=== PATIENT | male | born 1960 | race Caucasian/White ===

== ENCOUNTER → 2016-12-27 | Day surgery (SDC) | payer OTHER ==
[2016-12-01 14:37] VITALS: Ht 165.1 cm; Wt 95.5 kg
[~2016-12-27] VITALS: Ht 165.1 cm; Wt 95.5 kg
[~2016-12-27] MED LIST: 500ML BSS 0.3ML EPI 1:1000PF IRRIG ONE; ACETAMINOPHEN 325 MG TAB PO PRN; ALLO100T PO; AMT50 PO; AMVISC PLUS 0.8ML SYRINGE INT OCU ONE; ASPI81TA28 PO; ATROPINE SULFATE 0.1 MG/ML 5ML SYR IV PRN; BSS FLUSH ONE; EpHEDrine SULFATE INJ 50 MG/ML AMP IV PRN; EpINEphrine INJ 1MG/ML AMP 1 MG/ML AMP ONE; LACTATED RINGER'S 1000ML 500 ML IV SCH; LIDOCAINE 3.5% OPH GEL PER APPLICATION CHARGE ONE; LIDOCAINE HCL 1% MPF 2 ML VIAL ONE; MIDAZOLAM HCL 1 MG/ML 2ML VIAL ONE; NYSTCRE11 TOP; OCUCOAT 1 ML SOLN IO ONE; PHENYLEPHRINE HCL 10% OP SOLN PER DROP CHARGE OPL SCH; POVIDONE-IODINE OP SOLN 30 ML BTL ONE; PROPARACAINE 0.5% OP SOLN PER DROP CHARGE OPL SCH; SUMA100T16 PO; TOBRAMYCIN/DEXAMETHASONE OPH OINT PER APPLN CHARGE ONE; TOPI25TA99 PO
--- NOTE | 2016-12-27 08:49 | History & Physical Bridge - [place] ---
H&P Re-Evaluation Bridge Note: I have examined the patient, reviewed the History & Physical and in the interval since the performance of the History & Physical I have noted the following changes of clinical significance: Diagnosis: Left Cataract Procedure: Left Cataract Removal with Lens Implant No changes noted
[2016-12-27] MEDS: PHENYLEPHRINE HCL 2.5% OP SOLN PER DROP CHARGE OPL SCH ×2 (08:54→09:05)
[2016-12-27] MEDS: TROPICAMIDE 1% OP SOLN PER DROP CHARGE OPL SCH ×2 (08:55→09:06)
[2016-12-27] MEDS: CYCLOPENTOLATE HCL 1% OP SOLN PER DROP CHARGE OPL SCH ×2 (08:56→09:09)
[2016-12-27] MEDS: KETOROLAC 0.5% OP SOLN PER DROP CHARGE OPL SCH ×2 (08:57→09:10)
[2016-12-27] MEDS: GATIFLOXACIN OP SOLN PER DROP CHARGE OPL SCH ×2 (08:58→09:11)
--- NOTE | 2016-12-27 09:31 | Discharge Instructions-SurgCtr ---
Discharge Instructions Date of Service Dec 27, 2016. Visit Reason for Visit: Cataract Left Eye Discharge Discharge Diagnosis / Problem: cataract Discharge Goals Goal(s): Improve function Activity Recommendations Activity Limitations: per Instructions/Follow-up section Anesthesia . Post Anesthesia Instructions: If you have had General Anesthesia or IV Sedation: * Do not drive today. * Resume driving when surgeon permits. * Do not make important decisions or sign legal documents today. * Call surgeon for: 1. Temperature elevations greater than 101 degrees F. 2. Uncontrollable pain. 3. Excessive bleeding. 4. Persistent nausea and vomiting. 5. Medication intolerance (nausea, vomiting or rash). * For nausea and vomiting use only clear liquids such as: tea, soda, bouillon until nausea subsides, then gradually increase diet as tolerated. * If you have any concerns or questions, call your surgeon's office. If physician is unavailable and it is an emergency, call 911 or go to the nearest emergency room. . Instructions / Follow-Up Instructions / Follow-Up ACTIVITY RECOMMENDATIONS: * No strenuous lifting, jogging or running for 4 days * No swimming or yard work for 1 week. * Limited bending is permitted, such as putting on shoes. RETURN TO SCHOOL/WORK: No work until seen by physician in office. MEDICATIONS: Resume previous medications unless instructed otherwise by your surgeon. This includes eye drops for glaucoma. Zymaxid/Gatifloxacin (cerda cap) - one drop every 2 hours until bedtime Nevanac/Ilevro/Prolensa/Ketorolac (mosher cap) - one drop every 4 hours until bedtime Prednisolone/Durezol (white/pink cap, SHAKE WELL) - one drop every 2 hours until bedtime Starting tomorrow - all 3 drops every 4 hours until seen in the office Optive drops - as needed for discomfort SPECIAL CARE INSTRUCTIONS: * Wear eyeshield when sleeping, for four nights. * You may wear your own glasses or sunglasses while awake. * You may read or watch TV * You may shower and wash your face, but be gentle around the eye and pat dry. * Blurry vision and mild irritation are normal. * Call office if pain is more severe or vision becomes dark at . FOLLOW UP VISIT: Follow-up with Dr Mckeon tomorrow. Diet Recommendations Home Diet: resume previous diet Procedures Procedures Performed: Left Cataract Phacoemulsification With Intraocular Lens Implant Pending Studies Studies pending at discharge: no Medical Emergencies . Who to Call and When: Medical Emergencies: If at any time you feel your situation is an emergency, please call 911 immediately. . Non-Emergent Contact Non-Emergency issues call your: Land Surveyor Manager . . "Provider Documentation" section prepared by Yosef Mkceon. .
[2016-12-27 09:32] VITALS: TEMP 36.9
--- NOTE | 2016-12-27 09:32 | [facility] Operative Report ---
Operative Report Date of Service Dec 27, 2016. Operative Report 1. PREOPERATIVE DIAGNOSIS: Cataract of the left eye. 2. POSTOPERATIVE DIAGNOSIS: Same. 3. PROCEDURE: Phacoemulsification with intraocular lens implantation of the left eye. SURGEON: Dr. Yosef Mckeon. ANESTHESIA: Topical Lidocaine gel, 1% Non- Preserved intracameral Lidocaine, and monitored intravenous sedation. INDICATIONS FOR THE PROCEDURE: The patient is a 56 - year-old male with a history of cataract of the left eye causing significant visual impairment. The details of the proposed procedure were explained to the patient who asked appropriate questions and following discussion of all risks, benefits and alternatives agreed to have the procedure done. 4. OPERATION AND FINDINGS: DESCRIPTION OF PROCEDURE: After informed consent was obtained, the patient was brought to the Operating Room at the [facility]. The patient was placed in a supine position and then the left eye was prepped and draped in the usual sterile fashion for intraocular surgery. A drop of topical Lidocaine gel was placed in the operative eye. A wire lid speculum was then placed in the fornices. A corneal paracentesis was then created temporally. The Non-Preserved Lidocaine was then instilled into the anterior chamber. The anterior chamber was then pressurized with viscoelastic. A 2.0 mm clear corneal incision was then created temporally. A cystotome was inserted into the anterior chamber and used to create a tear in the anterior lens capsule. This capsular tear was then used to create a small flap and the flap was dragged in a counterclockwise direction in order to create a continuous curvilinear capsulorrhexis. Hydrodissection was accomplished with balanced salt solution. Phacoemulsification of the lens nucleus was then performed in a standard [id number] technique. The phaco time was 21 seconds with an average power of 10 %. The remaining cortical material was removed using irrigation aspiration. The capsular bag was then filled with viscoelastic. A Bausch & Lomb MI60L +17.0 diopters lens was then loaded into the injector and injected into the capsular bag. The remaining viscoelastic was removed with the irrigation aspiration handpiece. The wound was hydrated and then checked and found to be watertight. The intraocular pressure was checked and found to be adequate. The wire lid speculum was removed and the patient's face was cleaned and dried. TobraDex ointment was placed in the inferior fornix. The patient was discharged to the Recovery Room having tolerated the procedure well. There were no complications. The patient will be seen tomorrow in the office for follow-up. I attest to the content of the Intraoperative Record and any orders documented therein. Any exceptions are noted below.
[2016-12-27 09:59] VITALS: BP 110/78; PULSE 84; O2SAT 97
--- NOTE | 2016-12-27 10:05 | Anesthesiology Progress Note ---
Anesthesia Post Op Note Date & Time Dec 27, 2016 at 10:05 Vital Signs Pain Intensity: 0 Vital Signs Past 12 Hours Date Time Temp Pulse Resp B/P (MAP) Pulse Ox O2 Delivery O2 Flow Rate FiO2 12/27/16 09:59 84 16 110/78 (89) 97 Room Air 12/27/16 09:32 36.9 95 16 103/69 (80) 95 Room Air 12/27/16 08:31 36.8 103 18 109/76 (87) 97 Room Air Notes Mental Status: alert / awake / arousable, participated in evaluation Pt Amnestic to Procedure: No Nausea / Vomiting: adequately controlled Pain: adequately controlled Airway Patency, RR, SpO2: stable & adequate BP & HR: stable & adequate Hydration State: stable & adequate Anesthetic Complications: no major complications apparent amnesia level as expected for MAC
== END | disposition home or self-care (01) ==
LOC: X.SURG 07:44
PROVIDERS: ATTEND Ophthalmology
DX: H26.9 Unspecified cataract (principal); E78.2 Mixed hyperlipidemia; M10.9 Gout, unspecified; R73.03 Prediabetes; E78.5 Hyperlipidemia, unspecified; Z79.82 Long term (current) use of aspirin; Z80.42 Family history of malignant neoplasm of prostate; Z82.49 Family history of ischemic heart disease and other diseases of the circulatory system; Z79.899 Other long term (current) drug therapy; Z83.3 Family history of diabetes mellitus

== ENCOUNTER → 2017-01-17 | Day surgery (SDC) | payer OTHER ==
[2017-01-05 15:30] VITALS: Ht 165.1 cm; Wt 95.5 kg
[~2017-01-17] VITALS: Ht 165.1 cm; Wt 95.5 kg
[~2017-01-17] MED LIST changes: +FENTANYL CITRATE INJ 50 MCG/1 ML 2 ML VIAL ONE; -PHENYLEPHRINE HCL 10% OP SOLN PER DROP CHARGE OPL SCH; +PHENYLEPHRINE HCL 10% OP SOLN PER DROP CHARGE OPR SCH; -PROPARACAINE 0.5% OP SOLN PER DROP CHARGE OPL SCH; +PROPARACAINE 0.5% OP SOLN PER DROP CHARGE OPR SCH
[2017-01-17] MEDS: PHENYLEPHRINE HCL 2.5% OP SOLN PER DROP CHARGE OPR SCH ×2 (07:20→07:25)
[2017-01-17] MEDS: TROPICAMIDE 1% OP SOLN PER DROP CHARGE OPR SCH ×2 (07:21→07:26)
[2017-01-17] MEDS: CYCLOPENTOLATE HCL 1% OP SOLN PER DROP CHARGE OPR SCH ×2 (07:22→07:27)
[2017-01-17] MEDS: KETOROLAC 0.5% OP SOLN PER DROP CHARGE OPR SCH ×2 (07:23→07:29)
[2017-01-17] MEDS: GATIFLOXACIN OP SOLN PER DROP CHARGE OPR SCH ×2 (07:24→07:34)
--- NOTE | 2017-01-17 07:26 | History & Physical Bridge - [place] ---
H&P Re-Evaluation Bridge Note: I have examined the patient, reviewed the History & Physical and in the interval since the performance of the History & Physical I have noted the following changes of clinical significance: Diagnosis: Right Cataract Procedure: Right Cataract Removal with Lens Implant No changes noted
--- NOTE | 2017-01-17 08:08 | Discharge Instructions-SurgCtr ---
Discharge Instructions Date of Service Jan 17, 2017. Visit Reason for Visit: Right Cataract Discharge Discharge Diagnosis / Problem: cataract Discharge Goals Goal(s): Improve function Activity Recommendations Activity Limitations: per Instructions/Follow-up section Anesthesia . Post Anesthesia Instructions: If you have had General Anesthesia or IV Sedation: * Do not drive today. * Resume driving when surgeon permits. * Do not make important decisions or sign legal documents today. * Call surgeon for: 1. Temperature elevations greater than 101 degrees F. 2. Uncontrollable pain. 3. Excessive bleeding. 4. Persistent nausea and vomiting. 5. Medication intolerance (nausea, vomiting or rash). * For nausea and vomiting use only clear liquids such as: tea, soda, bouillon until nausea subsides, then gradually increase diet as tolerated. * If you have any concerns or questions, call your surgeon's office. If physician is unavailable and it is an emergency, call 911 or go to the nearest emergency room. . Instructions / Follow-Up Instructions / Follow-Up ACTIVITY RECOMMENDATIONS: * No strenuous lifting, jogging or running for 4 days * No swimming or yard work for 1 week. * Limited bending is permitted, such as putting on shoes. RETURN TO SCHOOL/WORK: No work until seen by physician in office. MEDICATIONS: Resume previous medications unless instructed otherwise by your surgeon. This includes eye drops for glaucoma. Zymaxid/Gatifloxacin (cerda cap) - one drop every 2 hours until bedtime Nevanac/Ilevro/Prolensa/Ketorolac (mosher cap) - one drop every 4 hours until bedtime Prednisolone/Durezol (white/pink cap, SHAKE WELL) - one drop every 2 hours until bedtime Starting tomorrow - all 3 drops every 4 hours until seen in the office Optive drops - as needed for discomfort SPECIAL CARE INSTRUCTIONS: * Wear eyeshield when sleeping, for four nights. * You may wear your own glasses or sunglasses while awake. * You may read or watch TV * You may shower and wash your face, but be gentle around the eye and pat dry. * Blurry vision and mild irritation are normal. * Call office if pain is more severe or vision becomes dark at . FOLLOW UP VISIT: Follow-up with Dr Mckeon tomorrow. Diet Recommendations Home Diet: resume previous diet Procedures Procedures Performed: Right Cataract Phacoemulsification With Intraocular Lens Implant Pending Studies Studies pending at discharge: no Medical Emergencies . Who to Call and When: Medical Emergencies: If at any time you feel your situation is an emergency, please call 911 immediately. . Non-Emergent Contact Non-Emergency issues call your: Physicians And Surgeons . . "Provider Documentation" section prepared by Yosef Mckeon. .
--- NOTE | 2017-01-17 08:09 | [facility] Operative Report ---
Operative Report Date of Service Jan 17, 2017. Operative Report 1. PREOPERATIVE DIAGNOSIS: Cataract of the right eye. 2. POSTOPERATIVE DIAGNOSIS: Same. 3. PROCEDURE: Phacoemulsification with intraocular lens implantation of the right eye. SURGEON: Dr. Yosef Mckeon. ANESTHESIA: Topical Lidocaine gel, 1% Non- Preserved intracameral Lidocaine, and monitored intravenous sedation. INDICATIONS FOR THE PROCEDURE: The patient is a 56 - year-old male with a history of cataract of the right eye causing significant visual impairment. The details of the proposed procedure were explained to the patient who asked appropriate questions and following discussion of all risks, benefits and alternatives agreed to have the procedure done. 4. OPERATION AND FINDINGS: DESCRIPTION OF PROCEDURE: After informed consent was obtained, the patient was brought to the Operating Room at the [facility]. The patient was placed in a supine position and then the right eye was prepped and draped in the usual sterile fashion for intraocular surgery. A drop of topical Lidocaine gel was placed in the operative eye. A wire lid speculum was then placed in the fornices. A corneal paracentesis was then created temporally. The Non-Preserved Lidocaine was then instilled into the anterior chamber. The anterior chamber was then pressurized with viscoelastic. A 2.0 mm clear corneal incision was then created temporally. A cystotome was inserted into the anterior chamber and used to create a tear in the anterior lens capsule. This capsular tear was then used to create a small flap and the flap was dragged in a counterclockwise direction in order to create a continuous curvilinear capsulorrhexis. Hydrodissection was accomplished with balanced salt solution. Phacoemulsification of the lens nucleus was then performed in a standard [id number]-[id number] technique. The phaco time was 15 seconds with an average power of 8 %. The remaining cortical material was removed using irrigation aspiration. The capsular bag was then filled with viscoelastic. A Bausch & Lomb MI60L +17.0 diopters lens was then loaded into the injector and injected into the capsular bag. The remaining viscoelastic was removed with the irrigation aspiration handpiece. The wound was hydrated and then checked and found to be watertight. The intraocular pressure was checked and found to be adequate. The wire lid speculum was removed and the patient's face was cleaned and dried. TobraDex ointment was placed in the inferior fornix. The patient was discharged to the Recovery Room having tolerated the procedure well. There were no complications. The patient will be seen tomorrow in the office for follow-up. I attest to the content of the Intraoperative Record and any orders documented therein. Any exceptions are noted below.
[2017-01-17 08:10] VITALS: TEMP 36.6
--- NOTE | 2017-01-17 08:15 | Anesthesia Progress Nt - [facility] ---
Anesthesia Post Op Note Date & Time Jan 17, 2017 at 08:15 Vital Signs Pain Intensity: 0 Vital Signs Past 12 Hours Date Time Temp Pulse Resp B/P (MAP) Pulse Ox O2 Delivery O2 Flow Rate FiO2 01/17/17 07:13 36.7 105 16 120/78 (92) 98 Room Air Notes Mental Status: alert / awake / arousable, participated in evaluation Pt Amnestic to Procedure: Yes Nausea / Vomiting: adequately controlled Pain: adequately controlled Airway Patency, RR, SpO2: stable & adequate BP & HR: stable & adequate Hydration State: stable & adequate Anesthetic Complications: no major complications apparent
[2017-01-17 08:24] VITALS: BP 121/81; PULSE 94; O2SAT 96
== END | disposition home or self-care (01) ==
LOC: X.SURG 06:18
PROVIDERS: ATTEND Ophthalmology
DX: H26.9 Unspecified cataract (principal); E78.2 Mixed hyperlipidemia; R73.03 Prediabetes; G43.109 Migraine with aura, not intractable, without status migrainosus; M10.9 Gout, unspecified; E66.9 Obesity, unspecified; Z79.82 Long term (current) use of aspirin; Z79.899 Other long term (current) drug therapy

== ENCOUNTER 2025-01-25 08:56 | Inpatient (IN) ==
--- NOTE | 2025-01-25 09:33 | Emergency Department Note ---
Impression & Plan Abdominal pain, Urinary tract infection, Hypokalemia, Depression ED Provider Note NAME: MARTINA PRETTY AGE: 64 SEX: M : 1960 ARRIVES VIA: Walk-In INFORMANT: Patient, ED PROVIDER(S): Dequan Egan DO CHIEF COMPLAINT: Multiple complaints HPI: The patient is a 64-year-old male who presented to the emergency department for an evaluation of multiple complaints. The patient states that he has had lower abdominal pain recently. He is being treated for a urinary tract infection. He also has back pain and chest pain. He is noted some shortness of breath but he states he has significant anxiety and depression. He is adenoma to talk to recently. The patient states he had a history of a fall where he injured his back. He does have a back brace that he wears currently. He denies having any leg swelling or leg pain. He has had some generalized weakness. He has been having difficulty at home because of all the symptoms. He is denying any suicidal ideation at this time. ROS: See above HPI for pertinent positives & negatives. A total of 10 systems reviewed and were otherwise negative. PAST MEDICAL HISTORY: See Below PAST SURGICAL HISTORY: See Below FAMILY HISTORY: See Below SOCIAL HISTORY: See Below HOME MEDICATIONS: See Below ALLERGIES: See Below VITALS: See Below PHYSICAL EXAMINATION: GENERAL: The patient is awake and alert. The patient appears somewhat anxious. EYES: The conjunctivae are clear. The pupils are round and reactive. EARS, NOSE, MOUTH AND THROAT: The nose is without any evidence of any deformity. NECK: The neck is nontender and supple. RESPIRATORY: Normal respiratory effort is noted there is no evidence of wheezing rhonchi or rales CARDIOVASCULAR: Regular rate and rhythm noted there no murmurs rubs or gallops normal S1 normal S2. GASTROINTESTINAL: The abdomen was mildly distended. There is suprapubic tenderness to palpation but no guarding or rigidity. BACK: There was diffuse tenderness across the lumbar spine. Range of motion appears intact. MUSCULOSKELETAL/EXTREMITIES: There is no evidence of gross deformity full range of motion is noted in the hips and shoulders. SKIN: There is no obvious evidence of any rash. There are no petechiae, pallor or cyanosis noted. NEUROLOGIC: Patient is awake alert and oriented x3 strength is symmetric patellar reflexes are 2+ bilaterally PSYCH: The patient's affect is very flat. The patient appears anxious and guarded. The patient is currently denying any suicidal ideation. MEDICAL DECISION MAKING: The patient is a 64-year-old male who presented to the emergency department for an evaluation of multiple complaints. The patient was experiencing abdominal pain. He is being treated for urinary tract infection. Patient also has a history of back pain. I discussed the patient's laboratory and radiographic studies with him. He was treated with IV fluids as well as potassium replacement. He was asked to give a urine sample multiple times but because of his CT findings he was started on an antibiotic for presumptive urinary tract infection. Given the patient's ongoing symptoms I [facility] They have agreed to evaluate the patient in the emergency department for further management and disposition. Triage Nursing notes reviewed. Prior medical records reviewed Vital Signs: reviewed and remarkable for no significant abnormalities Differential diagnosis: Etiologies such as appendicitis, diverticulitis, obstruction, inflammatory bowel disease, renal colic, PUD, biliary pathology, pancreatitis, mesenteric ischemia, aortic pathology, infections, genitourinary, UTI, perforated viscus, as well as others were entertained. ER treatment provided: See below Diagnostics interpreted by me: ECG: EKG was obtained in the emergency department. My interpretation is sinus tachycardia at 103 bpm. There was no ectopy. There was no acute ST segment abnormalities noted. No previous tracing was available. Cardiac Monitoring: An order was placed for continuous cardiac monitoring. The monitor shows a rate of 97 bpm with sinus rhythm. Laboratory studies: As stated above and show below. Imaging studies: See below. Radiographic imaging was reviewed by myself Consultation(s): I discussed this case with Dr. Miller who is [facility]. Past Med/Surg History Problem List (Updated 01/25/25 @ 13:26 by Dequan Egan DO) Depression (Acute) Hypokalemia (Acute) Urinary tract infection (Acute) Abdominal pain (Acute) Hypertension (Chronic) Dyslipidemia (Chronic) Obesity (Chronic) Vitamin D deficiency (Chronic) Diabetes type 2, uncontrolled (Chronic) Graves' eye disease (Chronic) Graves disease (Chronic) Medical History Double vision Goiter Hyperthyroidism Surgical History Hx of cataract extraction Family History Mother Hypothyroidism (acquired) Migraine Father Cancer YASMANI (obstructive sleep apnea) Social History Smoking Status: Never smoker Hx Alcohol Use: No Preferred Language: Pashto marital status: Single Feels Safe at Home: Yes Allergies Allergies Allergy/AdvReac Type Severity Reaction Status Date / Time No Known Allergies Allergy Unverified 01/25/25 13:00 Home Meds Home Medications Medication Instructions Recorded Confirmed allopurinol 100 mg tablet 100 mg PO BID 04/16/19 01/25/25 aspirin 81 mg tablet,delayed 81 mg PO DAILY 04/16/19 01/25/25 release sumatriptan succinate 100 mg 100 mg PO DIRECTED PRN Migraine 04/16/19 01/25/25 tablet (Imitrex) Headache melatonin 5 mg tablet 5 mg PO HS PRN Sleep 01/25/25 01/25/25 metformin 500 mg tablet 500 mg PO BID 01/25/25 01/25/25 nitrofurantoin 100 mg PO BID 01/25/25 01/25/25 monohydrate/macrocrystals 100 mg capsule nortriptyline 25 mg capsule 25 mg PO DAILY 01/25/25 01/25/25 rosuvastatin 10 mg tablet 10 mg PO DAILY 01/25/25 01/25/25 tamsulosin 0.4 mg capsule 0.4 mg PO DAILY 01/25/25 01/25/25 topiramate 50 mg tablet 50 mg PO BID 01/25/25 01/25/25 trazodone 100 mg tablet 100 mg PO HS 01/25/25 01/25/25 Results & Data (ED) Vital Signs Vital Signs - 24 hr 01/25/25 09:04 01/25/25 09:26 01/25/25 09:33 Temperature 36.8 C Temperature Source Temporal Artery Scan Pulse Rate 111 H 115 H Pulse Rate from SpO2 Sensor Respiratory Rate 20 Respiratory Effort / Characteristics Non-Labored Spontaneous Respiratory Depth Normal Blood Pressure 116/72 Blood Pressure Mean 86 Pulse Oximetry 98 Oxygen Delivery Method Room Air Room Air Sepsis Recent Fever Within 48 Hours No Sepsis New/Unexplained Change in Mental Status No Sepsis Action Taken by Nursing No Action Required 01/25/25 09:37 01/25/25 10:00 01/25/25 11:00 Temperature Temperature Source Pulse Rate 101 H 102 H Pulse Rate from SpO2 Sensor 102 H 102 H Respiratory Rate 15 18 Respiratory Effort / Characteristics Respiratory Depth Blood Pressure 132/75 116/69 128/106 H Blood Pressure Mean 109 90 112 Pulse Oximetry 98 Oxygen Delivery Method Sepsis Recent Fever Within 48 Hours Sepsis New/Unexplained Change in Mental Status Sepsis Action Taken by [facility]sp Medications Current Medication List: was personally reviewed by me Laboratory Data Attestation: I reviewed the patient's lab results. 01/25/25 09:26 01/25/25 09:26 Lab Results 01/25/25 01/25/25 Range/Units 09: 10:00 WBC 11.32 H (4.8-10.8) K/ul RBC 4.23 L (4.70-6.10) M/uL Hgb 13.6 L (14.0-18.0) g/dl Hct 37.2 L (42.0-52.0) % MCV 87.9 (80.0-100.0) fL MCH 32.2 (25.0-34.0) pg MCHC 36.6 H (32.0-36.0) g/dL RDW Std Deviation 47.8 H (36.4-46.3) fL RDW Coeff of Scott 15.1 H (11.5-14.5) % Plt Count 295 (130-400) K/uL MPV 11.2 (9.4-12.4) fL Immature Gran % (Auto) 0.3 % Neut % (Auto) 62.7 % Lymph % (Auto) 29.7 % [place] % (Auto) 5.9 % Eos % (Auto) 0.9 % Baso % (Auto) 0.5 % Neut # (Auto) 7.10 H (1.40-6.50) K/uL Lymph # (Auto) 3.36 (1.20-3.40) K/uL [place] # (Auto) 0.67 H (0.11-0.59) K/uL Eos # (Auto) 0.10 (0.00-0.50) K/uL Baso # (Auto) 0.06 (0.00-0.20) K/uL Immature Gran # (Auto) 0.03 (0.01-0.20) K/uL Sodium 137 (136-145) mmol/L Potassium 2.8 L (3.5-5.1) mmol/L Chloride 105 (98-107) mmol/L Carbon Dioxide 19 L (21-32) mmol/L Anion Gap 13 H (3-11) BUN 13 (6-23) mg/dl Creatinine 1.24 (0.6-1.4) mg/dl Est Cr Clr Drug Dosing 57.3 ml/min eGFR 64.52 BUN/Creatinine Ratio 10.5 (10-20) Glucose 178 H (70-99(Fasting)) mg/dl Calcium 9.7 (8.6-10.3) mg/dl Total Bilirubin 1.1 H (0.2-1.0) mg/dl AST 29 (13-39) U/L ALT 19 (7-52) U/L Alkaline Phosphatase 70 (34-104) U/L Troponin I High Sens 9.4 (0-20) pg/ml Total Protein 7.8 (6.0-8.3) gm/dl Albumin 4.2 (3.4-5.0) gm/dl Globulin 3.6 (2.5-4.0) gm/dl Albumin/Globulin Ratio 1.2 (0.9-2) Lipase 49 (11-82) U/L Salicylates < 3.0 L (3.0-30) mg/dl Acetaminophen < 3 L (10-30) ug/ml Administered Medications Discontinued Medications Sodium Chloride (Nss) 500 mls @ 999 mls/hr IV .Q31M STA Stop: 01/25/25 09:56 Last Infusion: 01/25/25 11:08 Dose: Infused Documented By: Admin: 01/25/25 09:37 Dose: 999 mls/hr Documented By: ANDREA Acetaminophen (Ofirmev) 1,000 mg in 100 mls @ 400 mls/hr IV NOW STA Stop: 01/25/25 09:40 Last Infusion: 01/25/25 11:08 Dose: Infused Documented By: Admin: 01/25/25 09:37 Dose: 400 mls/hr Documented By: ANDREA Potassium Chloride (K Joe / Wtr) 10 meq in 100 mls @ 100 mls/hr IV Q1H BLANKA Stop: 01/25/25 12:29 Last Admin: 01/25/25 12:10 Dose: 100 mls/hr Documented By: Infusion: 01/25/25 12:10 Dose: Infused Documented By: Admin: 01/25/25 10:45 Dose: 100 mls/hr Documented By: ANDREA Ioversol (Optiray 320 100ml) 94 ml IV ONCE ONE Stop: 01/25/25 10:43 Last Admin: 01/25/25 10:42 Dose: 94 ml Documented By: NUPUR Potassium Chloride (Potassium Chloride 10 Meq Tabcr) 10 meq PO NOW STA Stop: 01/25/25 10:24 Last Admin: 01/25/25 10:45 Dose: 10 meq Documented By: ANDREA Imaging Data Attestation: I personally reviewed and interpreted this imaging study as follows: My Impression: CT of the abdomen and pelvis was obtained in the emergency department. My interpretation is no free air or definite bowel obstruction, final report below. Radiologist's Impression: Abdomen/Pelvis CT 01/25/25 09:26 CT SCAN OF THE ABDOMEN AND PELVIS WITH IV CONTRAST CLINICAL HISTORY: Abdominal pain. Previous fall. COMPARISON STUDY: None. TECHNIQUE: Following the IV administration of Optiray 320, CT scan of the abdomen and pelvis is performed from the lung bases to the proximal femora. Images are reviewed in the axial, sagittal, and coronal planes. IV contrast was administered without complication. A dose lowering technique was utilized adhering to the principles of ALARA. FINDINGS: Visualized portions of the lung bases are unremarkable. There is no pneumatosis, free air or portal venous gas. Liver, spleen, adrenal glands and pancreas are unremarkable with the exception of a few calcifications within the pancreas. There is no biliary or pancreatic ductal dilatation. No peripancreatic or pericholecystic infiltration is present. A 2.3 cm left upper pole renal lesion measures just above water attenuation. This probably represents a cyst. Subcentimeter right renal hypodense lesion is too small to characterize. There is no hydronephrosis. Numerous small radiodensities within the bilateral renal collecting system could represent nonobstructing calculi or excreted contrast. There are no ureteral calculi. Mild bladder wall thickening is noted. There is no evidence for a bowel obstruction. The appendix is normal. Fat-containing right inguinal hernia is incidentally noted. There is no lymphadenopathy. There are no fluid collections. Lumbar spine CT will be reported separately. Major vasculature is patent. IMPRESSION: 1. Mild bladder wall thickening which be correlated with urinalysis to exclude cystitis. 2. No bowel obstruction. No bowel wall thickening. Normal appendix. 3. Numerous small radiodensities within the bilateral renal collecting systems which could represent nonobstructing calculi or excreted contrast. No ureteral calculi. No hydronephrosis. ACT 112: Negative or not required by law. Electronically signed by: Nigel Fuchs M.D. 01/25/2025 10:51 AM Chest X-Ray 01/25/25 09:26 XR chest 1V portable CLINICAL HISTORY: Pain. COMPARISON STUDY: Chest CT December 14, 2012. FINDINGS: The patient is mildly rotated. A linear density along left heart border favors atelectasis. There is no consolidation to suggest pneumonia. Pulmonary vascularity is normal. Cardiomediastinal silhouette is unremarkable. IMPRESSION: No acute cardiopulmonary findings. ACT 112: Negative or not required by law. Electronically signed by: Nigel Fuchs M.D. 01/25/2025 9:[address] 01/25/25 09:[address] WITH CONTRAST CLINICAL HISTORY: Back pain, previous fall. COMPARISON STUDY: No previous studies for comparison. TECHNIQUE: Axial images of the lumbar spine were obtained following intravenous injection of 94 cc of Optiray 320 IV. Sagittal and coronal reformats were viewed. A dose lowering technique was utilized adhering to the principles of ALARA. FINDINGS: Alignment of the lumbar spine is anatomic. Slight anterior wedging of the L1 and L2 vertebral bodies is chronic. There are no fractures within the lumbar spine. There are no suspicious osseous lesions by CT. Several Schmorl's nodes are noted. There is moderate facet arthrosis and anterior osteophytosis of the lumbar spine. There is mild multilevel disc space narrowing. Central canal and neural foramen are suboptimally assessed given CT technique. However, there is no evidence for significant central canal stenosis. There is mild to moderate multilevel neural foraminal stenosis. Paravertebral soft tissues are unremarkable. IMPRESSION: 1. No lumbar spine fracture or subluxation. 2. Moderate multilevel facet arthrosis and mild degenerative disc disease within the lumbar spine. No significant central canal stenosis by CT. Mild to moderate multilevel neural foraminal stenosis. ACT 112: Negative or not required by law. Electronically signed by: Nigel Fuchs M.D. 01/25/2025 10:55 AM Discharge Plan Visit Data Chief Complaint: Abdominal Pain Stated Complaint: BACK INJURY WEAKNESS ED Provider: Dequan Egan Discharge Problem: Abdominal pain, Urinary tract infection, Hypokalemia, Depression Patient Disposition: Being Evaluated by Hospitalist Condition: Fair Forms Stand Alone Forms: [facility] Prescriptions Prescriptions: No Action allopurinol 100 mg tablet 100 mg PO BID aspirin 81 mg tablet,delayed release (DR/EC) 81 mg PO DAILY sumatriptan succinate [Imitrex] 100 mg tablet 100 mg PO DIRECTED PRN (Reason: Migraine Headache) metformin 500 mg tablet 500 mg PO BID nortriptyline 25 mg capsule 25 mg PO DAILY tamsulosin 0.4 mg capsule 0.4 mg PO DAILY trazodone 100 mg tablet 100 mg PO HS rosuvastatin 10 mg tablet 10 mg PO DAILY topiramate 50 mg tablet 50 mg PO BID nitrofurantoin monohyd/m-cryst 100 mg capsule 100 mg PO BID Rx Instructions: Start Date 01/23/25 x7 day supply melatonin 5 mg Tablet 5 mg PO HS PRN (Reason: Sleep) Referrals Referrals: Jesus Alberto Robbins MD [Primary Care Provider] -
[2025-01-25] MEDS: ACETAMINOPHEN 1,000 MG/100 ML VIAL IV STA (09:37)
[2025-01-25] MEDS: SODIUM CHLORIDE 0.9% 500 ML IV STA (09:37)
[2025-01-25 09:47] LABS: Hematocrit (blood only) 37.2 % (42.0-52.0); Hemoglobin 13.6 g/dl (14.0-18.0); Immature Granulocytes # (auto) 0.03 K/uL (0.01-0.20); Immature Granulocytes % (auto) 0.3 %; Mean Corpuscular Hemoglobin 32.2 pg (25.0-34.0); Mean Corpuscular Volume 87.9 fL (80.0-100.0); Platelet Count 295 K/uL (130-400); RDW Standard Deviation 47.8 fL (36.4-46.3); Red Blood Count 4.23 M/uL (4.70-6.10); White Blood Count 11.32 K/ul (4.8-10.8)
--- NOTE | 2025-01-25 09:47 | XRay Report ---
XR chest 1V portable CLINICAL HISTORY: Pain. COMPARISON STUDY: Chest CT December 14, 2012. FINDINGS: The patient is mildly rotated. A linear density along left heart border favors atelectasis. There is no consolidation to suggest pneumonia. Pulmonary vascularity is normal. Cardiomediastinal s ilhouette is unremarkable. IMPRESSION: No acute cardiopulmonary findings. ACT 112: Negative or not required by law. Electronically signed by: Nigel Fuchs M.D. 01/25/2025 9:44 AM
[2025-01-25 10:05] LABS: Alanine Aminotransferase 19.0 U/L (7-52); Albumin Globulin Ratio 1.2 (0.9-2); Alkaline Phosphatase 70.0 U/L (34-104); Anion Gap 13.0 (3-11); Bilirubin,Total 1.1 mg/dl (0.2-1.0); Blood Urea Nitrogen 13.0 mg/dl (6-23); Calcium 9.7 mg/dl (8.6-10.3); Carbon Dioxide 19.0 mmol/L (21-32); Chloride 105.0 mmol/L (98-107); Creatinine Clr Calc Pharmacy 57.3 ml/min; Globulin 3.6 gm/dl (2.5-4.0); Glucose 178.0 mg/dl (70-99(Fasting)); Lipase 49.0 U/L (11-82); Potassium 2.8 mmol/L (3.5-5.1); Sodium 137.0 mmol/L (136-145); Total Protein 7.8 gm/dl (6.0-8.3)
[2025-01-25 10:21] LABS: Acetaminophen < 3 ug/ml (10-30); Salicylate < 3.0 mg/dl (3.0-30)
[2025-01-25] MEDS: OPTIRAY 320 100ml IV ONE (10:42)
[2025-01-25] MEDS: POTASSIUM CHLORIDE 10 MEQ TABCR PO STA (10:45)
[2025-01-25] MEDS: POTASSIUM CHLORIDE / WTR 10 MEQ/100 ML PLCT IV SCH (10:45)
--- NOTE | 2025-01-25 10:54 | CT Scan Report ---
CT SCAN OF THE ABDOMEN AND PELVIS WITH IV CONTRAST CLINICAL HISTORY: Abdominal pain. Previous fall. COMPARISON STUDY: None. TECHNIQUE: Following the IV administration of Optiray 320, CT scan of the abdomen and pelvis is perfo rmed from the lung bases to the proximal femora. Images are reviewed in the axial, sagittal, and leesa nal planes. IV contrast was administered without complication. A dose lowering technique was utilized adhering to the principles of ALARA. FINDINGS: Visualized portions of the lung bases are unremarkable. There is no pneumatosis, free air o r portal venous gas. Liver, spleen, adrenal glands and pancreas are unremarkable with the exception o f a few calcifications within the pancreas. There is no biliary or pancreatic ductal dilatation. No p eripancreatic or pericholecystic infiltration is present. A 2.3 cm left upper pole renal lesion measu res just above water attenuation. This probably represents a cyst. Subcentimeter right renal hypodens e lesion is too small to characterize. There is no hydronephrosis. Numerous small radiodensities with in the bilateral renal collecting system could represent nonobstructing calculi or excreted contrast. There are no ureteral calculi. Mild bladder wall thickening is noted. There is no evidence for a bow el obstruction. The appendix is normal. Fat-containing right inguinal hernia is incidentally noted. T here is no lymphadenopathy. There are no fluid collections. Lumbar spine CT will be reported separate ly. Major vasculature is patent. IMPRESSION: 1. Mild bladder wall thickening which be correlated with urinalysis to exclude cystitis. 2. No bowel obstruction. No bowel wall thickening. Normal appendix. 3. Numerous small radiodensities within the bilateral renal collecting systems which could represent nonobstructing calculi or excreted contrast. No ureteral calculi. No hydronephrosis. ACT 112: Negative or not required by law. Electronically signed by: Nigel Fuchs M.D. 01/25/2025 10:51 AM
--- NOTE | 2025-01-25 10:57 | CT Scan Report ---
LUMBAR SPINE CT WITH CONTRAST CLINICAL HISTORY: Back pain, previous fall. COMPARISON STUDY: No previous studies for comparison. TECHNIQUE: Axial images of the lumbar spine were obtained following intravenous injection of 94 cc of Optiray 320 IV. Sagittal and coronal reformats were viewed. A dose lowering technique was utilized a dhering to the principles of ALARA. FINDINGS: Alignment of the lumbar spine is anatomic. Slight anterior wedging of the L1 and L2 vertebr al bodies is chronic. There are no fractures within the lumbar spine. There are no suspicious osseous lesions by CT. Several Schmorl's nodes are noted. There is moderate facet arthrosis and anterior ost eophytosis of the lumbar spine. There is mild multilevel disc space narrowing. Central canal and neur al foramen are suboptimally assessed given CT technique. However, there is no evidence for significan t central canal stenosis. There is mild to moderate multilevel neural foraminal stenosis. Paravertebr al soft tissues are unremarkable. IMPRESSION: 1. No lumbar spine fracture or subluxation. 2. Moderate multilevel facet arthrosis and mild degenerative disc disease within the lumbar spine. No significant central canal stenosis by CT. Mild to moderate multilevel neural foraminal stenosis. ACT 112: Negative or not required by law. Electronically signed by: Nigel Fuchs M.D. 01/25/2025 10:55 AM
--- NOTE | 2025-01-25 13:04 | Electrocardiogram Report ---
Test Reason : Blood Pressure : */* mmHG Vent. Rate : 103 BPM Atrial Rate : 103 BPM P-R Int : 118 ms QRS Dur : 78 ms QT Int : 380 ms P-R-T Axes : 70 25 58 degrees QTcB Int : 497 ms Sinus tachycardia Otherwise normal ECG No previous ECGs available Confirmed by Dequan Doherty ([id number]) on 01/25/2025 1:04:09 PM Referred By: Confirmed By: Dequan Doherty
[2025-01-25] MEDS ORDERED: MAGNESIUM HYDROXIDE SUSP 30 ML UDC PO PRN (13:28)
[2025-01-25] MEDS ORDERED: ACETAMINOPHEN 325 MG TAB PO PRN (13:28)
[2025-01-25] MEDS ORDERED: POLYETHYLENE (MIRALAX) 17 GM PACK PO PRN (13:28)
[2025-01-25] MEDS ORDERED: ALUMINUM/MAGNESIUM SUSP 30 ML UDC PO PRN (13:28)
[2025-01-25] MEDS ORDERED: ONDANSETRON INJ 2 MG/ML 2 ML VIAL IV PRN (13:28)
[2025-01-25] MEDS ORDERED: GLUCAGON FOR INJ 1 MG VIAL SQ PRN (13:35)
[2025-01-25] MEDS ORDERED: CARBOHYDRATES FOR HYPOGLYCEMIA PO PRN (13:35)
[2025-01-25] MEDS ORDERED: GLUCOSE 40% GEL 15 GM TUBE PO PRN (13:35)
[2025-01-25] MEDS ORDERED: GLUCOSE 10 TAB/TUBE PO PRN (13:35)
[2025-01-25] MEDS ORDERED: DEXTROSE 50% 50 ML SYRINGE IV PRN (13:35)
--- NOTE | 2025-01-25 13:42 | History & Physical Report ---
Date of Service January 25, 2025 Assessment & Plan (1) Hypokalemia: Plan Complicated UTI: Patient started on Rocephin, continue. Follow urine analysis. Admitting CTAP reviewed. No CVA angle tenderness. History of depression: Patient feels lonely at home, denies suicidal ideation and homicidal ideation. Continue to monitor. Continue home medications. f/u on drug screen Hypokalemia: Received 30 mEq in the ED, admitting potassium of 2.8, will give additional 80 mEq. Repeat labs in AM. Chronic low back pain: Patient reports increase in pain lately, lumbar spine CT with no acute finding. Continue with as needed pain meds. Other chronic medical conditions: T2DM, gout, CKD stage IIIcontinue with/resume home meds as when able. DVT prophylaxis: Heparin subcu Full code History of Present Illness Chief Complaint: Lower belly pain, burning with passing urine Primary Care Provider: Jesus Alberto Robbins MD 64-year-old male with PMH of T2DM, gout, hyperthyroidism, PERDUE, chronic kidney disease stage III A, migraine, severe depression presents to the ED with complaint of lower abdominal pain and burning with passing urine for few days [employer]. He reports that he has taken 2 days worth of Macrobid as an outpatient, but he felt lonely and depressed at home and states that his lower abdominal pain and burning has not improved and hence he presented to the ED. He denies suicidal ideation or homicidal ideation. Patient denies fever/sore throat/cough/chest pain/nausea/vomiting. Patient reports appetite at his baseline. Patient reports constipation at his baseline. Patient denies smoking/alcohol/recreational drug use. Medications reviewed with the patient at bedside. Plan of care discussed with the patient in detail, he voiced understanding. Full code Allergies Allergy/AdvReac Type Severity Reaction Status Date / Time No Known Allergies Allergy Unverified 01/25/25 13:00 Home Medications Medication Instructions Recorded Confirmed Type allopurinol 100 mg tablet 100 mg PO BID 04/16/19 01/25/25 History aspirin 81 mg tablet,delayed 81 mg PO DAILY 04/16/19 01/25/25 History release sumatriptan succinate 100 mg 100 mg PO DIRECTED PRN Migraine 04/16/19 01/25/25 History tablet (Imitrex) Headache melatonin 5 mg tablet 5 mg PO HS PRN Sleep 01/25/25 01/25/25 History metformin 500 mg tablet 500 mg PO BID 01/25/25 01/25/25 History nitrofurantoin 100 mg PO BID 01/25/25 01/25/25 History monohydrate/macrocrystals 100 mg capsule nortriptyline 25 mg capsule 25 mg PO DAILY 01/25/25 01/25/25 History rosuvastatin 10 mg tablet 10 mg PO DAILY 01/25/25 01/25/25 History tamsulosin 0.4 mg capsule 0.4 mg PO DAILY 01/25/25 01/25/25 History topiramate 50 mg tablet 50 mg PO BID 01/25/25 01/25/25 History trazodone 100 mg tablet 100 mg PO HS 01/25/25 01/25/25 History Past Med/Surg History Problem List (Updated 01/25/25 @ 13:26 by Dequan Egan DO) Depression (Acute) Hypokalemia (Acute) Urinary tract infection (Acute) Abdominal pain (Acute) Hypertension (Chronic) Dyslipidemia (Chronic) Obesity (Chronic) Vitamin D deficiency (Chronic) Diabetes type 2, uncontrolled (Chronic) Graves' eye disease (Chronic) Graves disease (Chronic) Medical History Double vision Goiter Hyperthyroidism Surgical History Hx of cataract extraction Family History Mother Hypothyroidism (acquired) Migraine Father Cancer YASMANI (obstructive sleep apnea) Social History Smoking Status: Never smoker Hx Alcohol Use: No Preferred Language: Polish marital status: Single Feels Safe at Home: Yes Review of Systems Review of Systems: Negative otherwise mentioned in the HPI. Physical Exam Physical Exam: GENERAL: Alert and oriented x3. NAD, on RA. HEENT: No pallor, no icterus. Pupils equal, round and reactive to light. Oral mucosa moist. NECK: No JVD, no neck masses. HEART: S1 and S2 heard. Regular rate and rhythm. No murmur, no gallop. RESPIRATORY SYSTEM: Normal AP diameter. No accessory muscle use. No wheezing, no crackles. ABDOMEN: Soft, bowel sounds present, hypogastric tender x mild, no distention. CENTRAL NERVOUS SYSTEM: No facial droop. Speech is clear. Obeys simple commands. Moves extremities. EXTREMITIES: trace ble edema, no erythema seen. No CVA angle tenderness Results & Data Results & Data Vital Signs (Past 12 Hours) Vital Signs Temp Pulse Resp BP Pulse Ox O2 Del Method 01/25/25 11:00 102 H 18 128/106 H 01/25/25 10:00 101 H 15 116/69 98 01/25/25 09:37 132/75 01/25/25 09:33 115 H 01/25/25 09:26 Room Air 01/25/25 09:04 36.8 C 111 H 20 116/72 98 Room Air
[2025-01-25] MEDS: cefTRIAXone SODIUM 2,000 MG/50 ML BAG IV STA (13:55)
[2025-01-25] MEDS ORDERED: MELATONIN 3 MG TAB PO PRN (14:41)
[2025-01-25 15:14] LABS: Appearance Urine Clear (Clear); Bacteria Urine Automated None Seen (None Seen); Epithelial Cell Urine Auto 0-2 /hpf (0-2); Glucose Urine UA Negative (Negative); RBC Urine Automated 0-2 /hpf (0-2)
[2025-01-25] MEDS: POTASSIUM CHLORIDE CRTAB 20 MEQ TABCR PO SCH (15:33)
[2025-01-25] MEDS: TAMSULOSIN HCL 0.4 MG CAP PO SCH (15:33)
[2025-01-25 15:45] LABS: Amphetamines+Metham, Urine Neg (Neg); MDMA (Ecstacy), Urine Neg (Neg); Marijuana, Urine Neg (Neg)
[2025-01-25] MEDS: INSULIN ASPART PER UNIT CHARGE SC SCH (18:11)
[2025-01-25] MEDS: DOCUSATE SODIUM 100 MG CAP PO SCH (22:27)
[2025-01-25] MEDS: HEPARIN SOD 5,000 UNIT/0.5 ML VIAL SQ SCH (22:28)
[2025-01-25] MEDS: TOPIRAMATE 50 MG TAB PO SCH (22:28)
[2025-01-26 06:36] LABS: Hematocrit (blood only) 31.6 % (42.0-52.0); Hemoglobin 11.2 g/dl (14.0-18.0); Mean Corpuscular Hemoglobin 32.0 pg (25.0-34.0); Mean Corpuscular Volume 90.3 fL (80.0-100.0); Platelet Count 190 K/uL (130-400); RDW Standard Deviation 51.1 fL (36.4-46.3); Red Blood Count 3.50 M/uL (4.70-6.10); White Blood Count 5.74 K/ul (4.8-10.8)
[2025-01-26 06:59] LABS: Anion Gap 8.0 (3-11); Blood Urea Nitrogen 8.0 mg/dl (6-23); Calcium 8.3 mg/dl (8.6-10.3); Carbon Dioxide 23.0 mmol/L (21-32); Chloride 108.0 mmol/L (98-107); Creatinine Clr Calc Pharmacy 76.5 ml/min; Glucose 126.0 mg/dl (70-99(Fasting)); Magnesium 1.6 mg/dl (1.7-2.4); Potassium 3.0 mmol/L (3.5-5.1); Sodium 139.0 mmol/L (136-145)
[2025-01-26 07:39] LABS: Hemoglobin A1C 6.0 % (4.5-5.6)
[2025-01-26] MEDS: ASPIRIN 81 MG ECTAB PO SCH (08:06)
[2025-01-26] MEDS: NORTRIPTYLINE HCL 25 MG CAP PO SCH (08:06)
[2025-01-26] MEDS: MAGNESIUM OXIDE 400 MG TAB PO SCH (10:52)
[2025-01-26] MEDS: SODIUM CHLORIDE 0.9% 1,000 ML IV SCH (10:52)
[2025-01-26] MEDS: POTASSIUM CHLORIDE CRTAB 20 MEQ TABCR PO SCH (10:52)
[2025-01-26 11:29] LABS: Thyroid Stimulating Hormone 1.093 uIu/ml (0.300-4.500)
[2025-01-26] MEDS: POTASSIUM CHLORIDE / WTR 10 MEQ/100 ML PLCT IV SCH (12:21)
[2025-01-26] MEDS: POT PHOSPHATE MONOBASIC W/ SOD TAB PO SCH (12:32)
[2025-01-26] MEDS: cefTRIAXone SODIUM 2,000 MG/50 ML BAG IV SCH (13:58)
--- NOTE | 2025-01-26 15:16 | Hospitalist Progress Note ---
Date of Service January 26, 2025 Assessment & Plan (1) Hypokalemia: Plan Complicated UTI: Patient started on Rocephin, continue. Follow urine analysis. Admitting CTAP reviewed. No CVA angle tenderness. -- Urine culture: Pending Continue IV ceftriaxone Sinus tachycardia -- Check TSH IV NSS 125 cc/hr Hypokalemia,hypophosphatemia, hypomagnesemia -- replacement ordered History of depression: Patient feels lonely at home, denies suicidal ideation and homicidal ideation. Continue to monitor. Continue home medications. f/u on drug screen Chronic low back pain: Patient reports increase in pain lately, lumbar spine CT with no acute finding. Continue with as needed pain meds. Other chronic medical conditions: T2DM, gout, CKD stage IIIcontinue with/resume home meds as when able. DVT prophylaxis: Heparin subcu Full code Admission and Anticipated Discharge Date Admission Date: January 25, 2025 Subjective seen resting in bed, comfortable, sitting up States he feels improved today compared to yesterday Dysuria improving No chest pain, shortness of breath, palpitations, dizziness No other new symptoms Review of Systems Review of Systems: all noted and negative except for above Physical Exam Physical Exam: General- oriented x 3, not in distress, speaks in sentences with no effort or accessory muscle use Eyes- anicteric Neck- no JVD Lungs- clear breath sounds bilaterally, no rales/wheezes Heart- normal rate, regular rhythm; no murmurs Abdomen- normal bowel sounds, nondistended, soft, nontender No CVA tenderness Extremities- no pretibial edema, no calf tenderness Neuro- alert, oriented x 3; no gross focal neurologic deficits Skin- warm & dry Results & Data Results & Data Vital Signs (Past 12 Hours) Vital Signs Temp Pulse Pulse Resp BP BP Pulse Ox 01/26/25 13:02 109 H 01/26/25 11:42 36.7 C 104 H 24 102/65 98 01/26/25 08:10 36.7 C 115 H 20 110/70 97 01/26/25 05:36 101 H O2 Del Method 01/26/25 13:02 01/26/25 11:42 Room Air 01/26/25 08:10 Room Air 01/26/25 05:36 all noted and reviewed including below
[2025-01-26] MEDS: ARTIFICIAL TEARS OPB PRN (20:08)
--- NOTE | 2025-01-27 09:52 | Discharge Summary ---
Discharge Summary Date of Service January 27, 2025 Principal Dx & Hospital Course #1 = Principal Diagnosis (1) Hypokalemia: Plan Complicated UTI: Patient started on Rocephin, continue. Follow urine analysis. Admitting CTAP reviewed. No CVA angle tenderness. -- Urine culture: Pending Continue IV ceftriaxone Sinus tachycardia -- Check TSH IV NSS 125 cc/hr Hypokalemia,hypophosphatemia, hypomagnesemia -- replacement ordered History of depression: Patient feels lonely at home, denies suicidal ideation and homicidal ideation. Continue to monitor. Continue home medications. f/u on drug screen Chronic low back pain: Patient reports increase in pain lately, lumbar spine CT with no acute finding. Continue with as needed pain meds. Other chronic medical conditions: T2DM, gout, CKD stage IIIcontinue with/resume home meds as when able. 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 He reports that he has taken 2 days worth of Macrobid as an outpatient, but he felt lonely and depressed at home and states that his lower abdominal pain and burning has not improved and hence he presented to the ED. He denies suicidal ideation or homicidal ideation. Patient denies fever/sore throat/cough/chest pain/nausea/vomiting. Patient reports appetite at his baseline. Patient reports constipation at his baseline. Patient denies smoking/alcohol/recreational drug use. Medications reviewed with the patient at bedside. Plan of care discussed with the patient in detail, he voiced understanding. Full code Updated Medication List Medication Instructions Recorded Confirmed Type allopurinol 100 mg tablet 100 mg PO BID 04/16/19 01/25/25 History aspirin 81 mg tablet,delayed 81 mg PO DAILY 04/16/19 01/25/25 History release sumatriptan succinate 100 mg 100 mg PO DIRECTED PRN Migraine 04/16/19 01/25/25 History tablet (Imitrex) Headache melatonin 5 mg tablet 5 mg PO HS PRN Sleep 01/25/25 01/25/25 History metformin 500 mg tablet 500 mg PO BID 01/25/25 01/25/25 History nitrofurantoin 100 mg PO BID 01/25/25 01/25/25 History monohydrate/macrocrystals 100 mg capsule nortriptyline 25 mg capsule 25 mg PO DAILY 01/25/25 01/25/25 History rosuvastatin 10 mg tablet 10 mg PO DAILY 01/25/25 01/25/25 History tamsulosin 0.4 mg capsule 0.4 mg PO DAILY 01/25/25 01/25/25 History topiramate 50 mg tablet 50 mg PO BID 01/25/25 01/25/25 History trazodone 100 mg tablet 100 mg PO HS 01/25/25 01/25/25 History Lactobacillus acidoph-L.bulgaricus 1 tab PO DAILY 14 days #14 tabs 01/27/25 Rx 1 million cell tablet (Floranex) cefdinir 300 mg capsule 300 mg PO BID 5 days #10 caps 01/27/25 Rx Hospital Stay Data Consultations 01/25/25 13:03 ED Decision to Admit Stat Diagnostic Imagining Performed 01/25/25 09:26 CT abd pelvis IV con only Stat CT lumbar spine w con Stat Pending Results Patient Have Any Pending Studies at Discharge: No Discharge Instructions Given to Patient (Per Discharging Provider) PLEASE REFER TO YOUR NEW MEDICATION LIST AND FOLLOW INSTRUCTIONS CAREFULLY. YOUR NEW MEDICATIONS INCLUDE: Cefdinir-antibiotic for urinary tract infection Probiotics INCREASE YOUR DAILY WATER INTAKE 6-8 GLASSES PER DAY. PLEASE CALL YOUR PRIMARY CARE PHYSICIAN OR RETURN TO THE ER IF WITH WORSENING OF SYMPTOMS, INCLUDING WEAKNESS, DIZZINESS, chest pain, palpitations, shortness of breath, Abdominal pain, problems with urination, etc. FOLLOW UP WITH PRIMARY CARE PHYSICIAN OUTLINED ABOVE.
[2025-01-27 10:22] LABS: Hematocrit (blood only) 29.9 % (42.0-52.0); Hemoglobin 10.9 g/dl (14.0-18.0); Immature Granulocytes # (auto) 0.01 K/uL (0.01-0.20); Immature Granulocytes % (auto) 0.2 %; Mean Corpuscular Hemoglobin 34.1 pg (25.0-34.0); Mean Corpuscular Volume 93.4 fL (80.0-100.0); Platelet Count 171 K/uL (130-400); RDW Standard Deviation 54.6 fL (36.4-46.3); Red Blood Count 3.20 M/uL (4.70-6.10); White Blood Count 4.07 K/ul (4.8-10.8)
[2025-01-27 10:25] LABS: Alanine Aminotransferase 13.0 U/L (7-52); Albumin Globulin Ratio 1.2 (0.9-2); Alkaline Phosphatase 54.0 U/L (34-104); Anion Gap 7.0 (3-11); Bilirubin,Total 0.7 mg/dl (0.2-1.0); Blood Urea Nitrogen 6.0 mg/dl (6-23); Calcium 8.0 mg/dl (8.6-10.3); Carbon Dioxide 22.0 mmol/L (21-32); Chloride 112.0 mmol/L (98-107); Creatinine Clr Calc Pharmacy 90.8 ml/min; Globulin 2.5 gm/dl (2.5-4.0); Glucose 109.0 mg/dl (70-99(Fasting)); Magnesium 1.7 mg/dl (1.7-2.4); Potassium 3.1 mmol/L (3.5-5.1); Sodium 141.0 mmol/L (136-145); Total Protein 5.4 gm/dl (6.0-8.3)
[2025-01-27] MEDS: POTASSIUM CHLORIDE 20 MEQ/15 ML UDC PO STA (11:07)
--- NOTE | 2025-01-27 14:45 | Hospitalist Progress Note ---
Date of Service January 27, 2025 Assessment & Plan (1) Urinary tract infection: Plan: (1) Hypokalemia: Plan Complicated UTI: Patient started on Rocephin, continue. Follow urine analysis. Admitting CTAP reviewed. No CVA angle tenderness. -- Urine culture: Pending Continue IV ceftriaxone 01/27 Urine culture negative so far Possible partial urine UTI as patient was already on Macrobid before admission Continue IV ceftriaxone Sinus tachycardia -- Check TSH: Normal -- seems to be improving overall continue 1 more bag of IV NSS 125 cc/hr Hypokalemia,hypophosphatemia, hypomagnesemia -- improving, replacement ordered History of depression: Patient feels lonely at home, denies suicidal ideation and homicidal ideation. Continue to monitor. Continue home medications. f/u on drug screen -- patient requesting for psychiatry evaluation In light of worsening depression symptoms, order placed Chronic low back pain: Patient reports increase in pain lately, lumbar spine CT with no acute finding. Continue with as needed pain meds. Other chronic medical conditions: T2DM, gout, CKD stage IIIcontinue with/resume home meds as when able. DVT prophylaxis: Heparin subcu Full code Admission and Anticipated Discharge Date Admission Date: January 25, 2025 Subjective seen resting in bed, comfortable, not in distress States he continues to feel improved overall No abdominal pain, problems with urination, fevers or chills Denies chest pain, palpitations, dizziness States he would like to talk to the psychiatrist regarding depression symptoms, denies suicidal ideations No other new symptoms Review of Systems Review of Systems: all noted and negative except for above Physical Exam Physical Exam: General- oriented x 3, not in distress, speaks in sentences with no effort or accessory muscle use Eyes- anicteric Neck- no JVD Lungs- clear breath sounds bilaterally, no rales/wheezes Heart- (+) mild tachycardia, regular rhythm; no murmurs Abdomen- normal bowel sounds, nondistended, soft, no tenderness Extremities- no pretibial edema, no calf tenderness Neuro- alert, oriented x 3; no gross focal neurologic deficits Skin- warm & dry Results & Data Results & Data Vital Signs (Past 12 Hours) Vital Signs Temp Pulse Pulse Resp BP Pulse Ox O2 Del Method 01/27/25 13:33 105 H 01/27/25 11:10 36.3 C L 107 H 16 100/61 98 Room Air 01/27/25 07:56 36.7 C 98 H 20 116/71 97 Room Air 01/27/25 05:18 98 H 01/27/25 03:54 36.6 C 101 H 20 117/73 98 Room Air all noted and reviewed including below
[2025-01-27] MEDS ORDERED: ARTIFICIAL TEARS OPB PRN (16:40)
[2025-01-28 06:39] LABS: Hematocrit (blood only) 31.0 % (42.0-52.0); Hemoglobin 10.7 g/dl (14.0-18.0); Immature Granulocytes # (auto) 0.02 K/uL (0.01-0.20); Immature Granulocytes % (auto) 0.5 %; Mean Corpuscular Hemoglobin 32.2 pg (25.0-34.0); Mean Corpuscular Volume 93.4 fL (80.0-100.0); Platelet Count 171 K/uL (130-400); RDW Standard Deviation 55.5 fL (36.4-46.3); Red Blood Count 3.32 M/uL (4.70-6.10); White Blood Count 4.12 K/ul (4.8-10.8)
[2025-01-28 07:05] LABS: Alanine Aminotransferase 13.0 U/L (7-52); Albumin Globulin Ratio 1.2 (0.9-2); Alkaline Phosphatase 49.0 U/L (34-104); Anion Gap 6.0 (3-11); Bilirubin,Total 0.5 mg/dl (0.2-1.0); Blood Urea Nitrogen 4.0 mg/dl (6-23); Calcium 7.9 mg/dl (8.6-10.3); Carbon Dioxide 22.0 mmol/L (21-32); Chloride 113.0 mmol/L (98-107); Creatinine Clr Calc Pharmacy 98.1 ml/min; Globulin 2.3 gm/dl (2.5-4.0); Glucose 109.0 mg/dl (70-99(Fasting)); Potassium 3.4 mmol/L (3.5-5.1); Sodium 141.0 mmol/L (136-145); Total Protein 5.1 gm/dl (6.0-8.3)
[2025-01-28 07:33] VITALS: RESP 18; O2SAT 99
[2025-01-28] MEDS: POTASSIUM CHLORIDE 20 MEQ/15 ML UDC PO STA (08:14)
[2025-01-28 08:22] LABS: Magnesium 1.7 mg/dl (1.7-2.4)
[2025-01-28 11:21] VITALS: BP 106/74; TEMP 97.3
--- NOTE | 2025-01-28 12:23 | Psychiatric Consultation ---
Date of Consultation January 28, 2025 Impression / Recommendations Impression 64 y/o M here for complicated UTI. Psychiatry consulted for depression evaluation. Concerned for grief that evolved into an active major depressive episode. Denies SI and no safety concerns presented. Pt nortriptyline is low dose and for migraines and can be maintained with initiation of SSRI and is low risk of serotonin syndrome. Overall, I spent a total of 80 minutes with this case including review of chart records, nursing report, review of lab work, direct evaluation of the patient at bedside, counseling the patient, discussion of the patient with the hospitalist provider, discussion with the psychiatric liaison during clinical rounds, and documentation in the electronic health record. (1) MDD (major depressive disorder), recurrent episode, severe: (2) Unresolved grief: (3) Urinary tract infection: Plan 01/29/25: Start Sertraline 50mg daily Continue Topiramate, Nortryptyline, Trazodone Start Hydroxyzine 25mg BID PRN for anxiety No indication for bedside sitter or inpatient psychiatry at this time CM referral who will then refer him to counseling Psych History Identifying Data 64 y/o M here for complicated UTI. Psychiatry consulted for depression evaluation. Chief Complaint "Mother passed in March" History of Present Illness Patient reports that his mother in March of last year and they were living together for 65 years. 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 Now he is living by himself. He has a sister in [place] he is in touch with and a brother he is estranged from. Reports recently not eating, having disrupted sleep, low mood, poor concentration, low energy. Has been isolating and not engaging in self-care. Tearful throughout our encounter. Says he does not contact friends. He denies past history of depressive episodes or family history of psychiatric issues. He denies SI and reports no past suicide attempts. Reports having reminders of his mother around the house when he sees her belongings. Denies hearing or seeing her as a vision or voice. Says he is on disability since 2009 for migraines and other health issues. Currently taking Topamax for weight loss and nortriptyline for migraines. Allergies Allergy/AdvReac Type Severity Reaction Status Date / Time No Known Allergies Allergy Unverified 01/25/25 13:00 Home Medications Medication Instructions Recorded Confirmed Type allopurinol 100 mg tablet 100 mg PO BID 04/16/19 01/25/25 History aspirin 81 mg tablet,delayed 81 mg PO DAILY 04/16/19 01/25/25 History release sumatriptan succinate 100 mg 100 mg PO DIRECTED PRN Migraine 04/16/19 01/25/25 History tablet (Imitrex) Headache melatonin 5 mg tablet 5 mg PO HS PRN Sleep 01/25/25 01/25/25 History metformin 500 mg tablet 500 mg PO BID 01/25/25 01/25/25 History nortriptyline 25 mg capsule 25 mg PO DAILY 01/25/25 01/25/25 History rosuvastatin 10 mg tablet 10 mg PO DAILY 01/25/25 01/25/25 History tamsulosin 0.4 mg capsule 0.4 mg PO DAILY 01/25/25 01/25/25 History topiramate 50 mg tablet 50 mg PO BID 01/25/25 01/25/25 History trazodone 100 mg tablet 100 mg PO HS 01/25/25 01/25/25 History Lactobacillus acidoph-L.bulgaricus 1 tab PO DAILY 14 days #14 tabs 01/27/25 Rx 1 million cell tablet (Floranex) cefdinir 300 mg capsule 300 mg PO BID 5 days #10 caps 01/27/25 Rx hydroxyzine HCl 25 mg tablet 25 mg PO BID PRN anxiety #14 tabs 01/28/25 Rx potassium chloride 10 mEq 20 meq (2 x 10 mEq) PO DAILY 7 01/28/25 Rx tablet,extended release days #14 tabs sertraline 50 mg tablet 50 mg PO DAILY 30 days #30 tabs 01/28/25 Rx Patient History Medical History Double vision Goiter Hyperthyroidism Surgical History Hx of cataract extraction Family History Mother Hypothyroidism (acquired) Migraine Father Cancer YASMANI (obstructive sleep apnea) Social History Smoking Status: Never smoker Second Hand Exposure: No; Do You Dip or Chew Tobacco: No; Hx Alcohol Use: No Hx Substance Use: No Preferred Language: Tamaz[place] Communication Ability: Effective Clerical Methods Analyst Required: No Beliefs That Will Affect Care: None marital status: Single Current Living Situation: Alone Current Living Situation Comment: Pt. lives at home, alone Other Information That Helps Us Care for You: No Feels Safe at Home: Yes Safety Concerns: Feels Safe At This Time Assistive Devices: Brace/Splint/Immobilizer and Cane Physical Exam Vital Signs (Past 24 Hours): Last Vital Signs Temp 36.3 C L 01/28/25 11:21 Pulse 91 H 01/28/25 11:21 Resp 18 01/28/25 11:21 BP 106/74 01/28/25 11:21 Pulse Ox 99 01/28/25 11:21 O2 Del Method Room Air 01/28/25 11:21 Results & Data (PSY) Medications Administered Allopurinol (Allopurinol 100 Mg Tab) 100 mg PO BID [facility] Stop: 02/24/25 20:59 Last Admin: 01/28/25 08:05 Dose: 100 mg Documented By: neelam Admin: 01/27/25 21:19 Dose: 100 mg Documented By: Admin: 01/27/25 08:00 Dose: 100 mg Documented By: Admin: 01/26/25 20:08 Dose: 100 mg Documented By: Admin: 01/26/25 08:06 Dose: 100 mg Documented By: neelam Admin: 01/25/25 22:27 Dose: 100 mg Documented By: KAM Artificial Tears (Artificial Tears) 1 drops OPB QID PRN PRN Reason: Dryness Stop: 02/25/25 19:27 Last Admin: 01/27/25 21:19 Dose: 1 drops Documented By: Admin: 01/26/25 20:08 Dose: 1 drops Documented By: KAM Aspirin (Aspirin 81 Mg Ectab) 81 mg PO DAILY [facility] Stop: 02/25/25 08:59 Last Admin: 01/28/25 08:05 Dose: 81 mg Documented By: neelam Admin: 01/27/25 07:59 Dose: 81 mg Documented By: Admin: 01/26/25 08:06 Dose: 81 mg Documented By: neelam Docusate Sodium (Docusate Sodium 100 Mg Cap) 100 mg PO BID [facility] Stop: 02/24/25 20:59 Last Admin: 01/28/25 08:05 Dose: Not Given Documented By: neelam Admin: 01/27/25 21:16 Dose: Not Given Documented By: Admin: 01/27/25 07:55 Dose: Not Given Documented By: Admin: 01/26/25 20:08 Dose: 100 mg Documented By: Admin: 01/26/25 08:06 Dose: 100 mg Documented By: neelam Admin: 01/25/25 22:27 Dose: 100 mg Documented By: KAM Heparin Sodium (Porcine) (Heparin Sod 5,000 Unit/0.5 Ml Vial) 5,000 units SQ Q12 BLANKA Stop: 02/24/25 20:59 Last Admin: 01/28/25 08:05 Dose: 5,000 units Documented By: neelam Admin: 01/27/25 21:33 Dose: 5,000 units Documented By: Admin: 01/27/25 07:55 Dose: Not Given Documented By: Admin: 01/26/25 20:08 Dose: 5,000 units Documented By: Admin: 01/26/25 08:06 Dose: 5,000 units Documented By: neelam Admin: 01/25/25 22:28 Dose: 5,000 units Documented By: KAM Ceftriaxone Sodium (Rocephin) 2,000 mg in 50 mls @ 100 mls/hr IV Q24H BLANKA Stop: 02/05/25 12:59 Last Admin: 01/28/25 12:21 Dose: 100 mls/hr Documented By: neelam Infusion: 01/27/25 13:12 Dose: Infused Documented By: Admin: 01/27/25 12:31 Dose: 100 mls/hr Documented By: Infusion: 01/26/25 14:38 Dose: Infused Documented By: neelam Admin: 01/26/25 13:58 Dose: 100 mls/hr Documented By: neelam Insulin Aspart (Insulin Aspart Per Unit Charge) 0 units SC ACHS BLANKA Stop: 02/24/25 16:29 Last Admin: 01/28/25 09:21 Dose: 2 units Documented By: neelam Co-signed By: ALAN Admin: 01/27/25 21:15 Dose: Not Given Documented By: Admin: 01/27/25 18:14 Dose: 2 units Documented By: ALAN Co-signed By: SONIA Admin: 01/27/25 13:40 Dose: 2 units Documented By: ALAN Co-signed By: jannet Admin: 01/27/25 09:40 Dose: 1 units Documented By: ALAN Co-signed By: jannet Admin: 01/26/25 20:25 Dose: Not Given Documented By: Admin: 01/26/25 18:20 Dose: 2 units Documented By: neelam Co-signed By: ALAN Admin: 01/26/25 13:51 Dose: Not Given Documented By: neelam Admin: 01/26/25 09:48 Dose: 3 units Documented By: neelam Co-signed By: ALAN Admin: 01/25/25 21:39 Dose: Not Given Documented By: Admin: 01/25/25 18:11 Dose: Not Given Documented By: ANDREA Magnesium Oxide (Magnesium Oxide 400 Mg Tab) 400 mg PO BID@0700,1900 BLANKA Stop: 02/25/25 09:59 Last Admin: 01/28/25 06:21 Dose: 400 mg Documented By: Admin: 01/27/25 18:17 Dose: 400 mg Documented By: Admin: 01/27/25 05:56 Dose: 400 mg Documented By: Admin: 01/26/25 20:07 Dose: 400 mg Documented By: Admin: 01/26/25 10:52 Dose: 400 mg Documented By: neelam Nortriptyline HCl (Nortriptyline Hcl 25 Mg Cap) 25 mg PO DAILY BLANKA Stop: 02/25/25 08:59 Last Admin: 01/28/25 08:05 Dose: 25 mg Documented By: neelam Admin: 01/27/25 08:00 Dose: 25 mg Documented By: Admin: 01/26/25 08:06 Dose: 25 mg Documented By: neelam Tamsulosin HCl (Tamsulosin Hcl 0.4 Mg Cap) 0.4 mg PO DAILY BLANKA Stop: 02/24/25 14:59 Last Admin: 01/28/25 08:05 Dose: Not Given Documented By: neelam Admin: 01/27/25 07:59 Dose: Not Given Documented By: Admin: 01/26/25 08:06 Dose: 0.4 mg Documented By: neelam Admin: 01/25/25 15:33 Dose: 0.4 mg Documented By: ANDREA Topiramate (Topiramate 50 Mg Tab) 50 mg PO BID BLANKA Stop: 02/24/25 20:59 Last Admin: 01/28/25 08:05 Dose: 50 mg Documented By: neelam Admin: 01/27/25 21:19 Dose: 50 mg Documented By: Admin: 01/27/25 07:59 Dose: 50 mg Documented By: Admin: 01/26/25 20:08 Dose: 50 mg Documented By: Admin: 01/26/25 08:06 Dose: 50 mg Documented By: neelam Admin: 01/25/25 22:28 Dose: 50 mg Documented By: KAM Trazodone HCl (Trazodone Hcl 100 Mg Tab) 100 mg PO HS BLANKA Stop: 02/24/25 20:59 Last Admin: 01/27/25 21:19 Dose: 100 mg Documented By: Admin: 01/26/25 20:08 Dose: 100 mg Documented By: Admin: 01/25/25 22:28 Dose: 100 mg Documented By: KAM [place] [address] IN/OBS CONSULT LVL 5,80M Patient Type New History Comprehensive Exam Comprehensive Medical Decision Making High Complexity Diagnoses MDD (major depressive disorder), recurrent episode, severe F33.2 Unresolved grief F43.21 Urinary tract infection N39.0
--- NOTE | 2025-01-28 12:47 | Discharge Summary ---
Discharge Summary Date of Service January 28, 2025 Principal Dx & Hospital Course #1 = Principal Diagnosis (1) Urinary tract infection: (1) Hypokalemia: Plan Complicated UTI: Patient started on Rocephin, continue. Follow urine analysis. Admitting CTAP reviewed. No CVA angle tenderness. -- Urine culture: Pending Continue IV ceftriaxone CT abd/pelvis: 1. Mild bladder wall thickening which be correlated with urinalysis to exclude cystitis. 2. No bowel obstruction. No bowel wall thickening. Normal appendix. 3. Numerous small radiodensities within the bilateral renal collecting systems which could represent nonobstructing calculi or excreted contrast. No ureteral calculi. No hydronephrosis. 01/28 Urine culture negative so far Possible partial urine UTI as patient was already on Macrobid before admission -- DC Macrobid, continue cefdinir course Sinus tachycardia -- Check TSH: Normal -- improved after IV fluids and electrolyte correction -- continue to monitor closely Hypokalemia,hypophosphatemia, hypomagnesemia -- hypokalemia resolved, 3.4 upon discharge today, potassium supplement ordered, repeat potassium on PCP follow-up hypophosphatemia and hypomagnesemia resolved History of depression: Patient feels lonely at home, denies suicidal ideation and homicidal ideation. Continue to monitor. Continue home medications. f/u on drug screen -- patient requesting for psychiatry evaluation In light of worsening depression symptoms, order placed -- 01/28 evaluated by psychiatry service " Concerned for grief that evolved into an active major depressive episode. Denies SI and no safety concerns presented. Recommending Sertraline 50mg daily, Hydroxyzine 50mg HS for sleep, and Hydroxyzine 25mg BID prn for anxiety. Can f/u with PCP. I believe he is already going to be setup with case management and they can assist with counseling referral after intake. " " start sertraline 50mg qd, continue topamax and pamelor, continue trazodone, hydroxyzine 25mg bid prn for anxiety" Chronic low back pain: Patient reports increase in pain lately, lumbar spine CT with no acute finding. Continue with as needed pain meds. Other chronic medical conditions: T2DM, gout, CKD stage IIIcontinue with/resume home meds as when able. 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 He reports that he has taken 2 days worth of Macrobid as an outpatient, but he felt lonely and depressed at home and states that his lower abdominal pain and burning has not improved and hence he presented to the ED. He denies suicidal ideation or homicidal ideation. Patient denies fever/sore throat/cough/chest pain/nausea/vomiting. Patient reports appetite at his baseline. Patient reports constipation at his baseline. Patient denies smoking/alcohol/recreational drug use. Medications reviewed with the patient at bedside. Plan of care discussed with the patient in detail, he voiced understanding. Full code Admission Exam Per Admitting Provider GENERAL: Alert and oriented x3. NAD, on RA. HEENT: No pallor, no icterus. Pupils equal, round and reactive to light. Oral mucosa moist. NECK: No JVD, no neck masses. HEART: S1 and S2 heard. Regular rate and rhythm. No murmur, no gallop. RESPIRATORY SYSTEM: Normal AP diameter. No accessory muscle use. No wheezing, no crackles. ABDOMEN: Soft, bowel sounds present, hypogastric tender x mild, no distention. CENTRAL NERVOUS SYSTEM: No facial droop. Speech is clear. Obeys simple commands. Moves extremities. EXTREMITIES: trace ble edema, no erythema seen. No CVA angle tenderness Discharge Exam General- oriented x 3, not in distress, speaks in sentences with no effort or accessory muscle use Eyes- anicteric Neck- no JVD Lungs- clear breath sounds bilaterally, no rales/wheezes Heart- (+) mild tachycardia, regular rhythm; no murmurs Abdomen- normal bowel sounds, nondistended, soft, no tenderness Extremities- no pretibial edema, no calf tenderness Neuro- alert, oriented x 3; no gross focal neurologic deficits Skin- warm & dry Updated Medication List Medication Instructions Recorded Confirmed Type allopurinol 100 mg tablet 100 mg PO BID 04/16/19 01/25/25 History aspirin 81 mg tablet,delayed 81 mg PO DAILY 04/16/19 01/25/25 History release sumatriptan succinate 100 mg 100 mg PO DIRECTED PRN Migraine 04/16/19/11/13 History tablet (Imitrex) Headache melatonin 5 mg tablet 5 mg PO HS PRN Sleep 01/25/25 01/25/25 History metformin 500 mg tablet 500 mg PO BID 01/25/25 01/25/25 History nitrofurantoin 100 mg PO BID 01/25/25 01/25/25 History monohydrate/macrocrystals 100 mg capsule nortriptyline 25 mg capsule 25 mg PO DAILY 01/25/25 01/25/25 History rosuvastatin 10 mg tablet 10 mg PO DAILY 01/25/25 01/25/25 History tamsulosin 0.4 mg capsule 0.4 mg PO DAILY 01/25/25 01/25/25 History topiramate 50 mg tablet 50 mg PO BID 01/25/25 01/25/25 History trazodone 100 mg tablet 100 mg PO HS 01/25/25 01/25/25 History Lactobacillus acidoph-L.bulgaricus 1 tab PO DAILY 14 days #14 tabs 01/27/25 Rx 1 million cell tablet (Floranex) cefdinir 300 mg capsule 300 mg PO BID 5 days #10 caps 01/27/25 Rx hydroxyzine HCl 25 mg tablet 25 mg PO BID PRN anxiety #14 tabs 01/28/25 Rx potassium chloride 10 mEq 20 meq (2 x 10 mEq) PO DAILY 7 01/28/25 Rx tablet,extended release days #14 tabs sertraline 50 mg tablet 50 mg PO DAILY 30 days #30 tabs 01/28/25 Rx Hospital Stay Data Consultations 01/25/25 13:03 ED Decision to Admit Stat 01/27/25 10:35 Consult Psychiatry Routine Diagnostic Imagining Performed Laboratory Results WBC 4.12 K/ul (4.8-10.8) L 01/28/25 06:15 RBC 3.32 M/uL (4.70-6.10) L 01/28/25 06:15 Hgb 10.7 g/dl (14.0-18.0) L 01/28/25 06:15 Hct 31.0 % (42.0-52.0) L 01/28/25 06:15 MCV 93.4 fL (80.0-100.0) 01/28/25 06:15 MCH 32.2 pg (25.0-34.0) 01/28/25 06:15 MCHC 34.5 g/dL (32.0-36.0) 01/28/25 06:15 RDW Std Deviation 55.5 fL (36.4-46.3) H 01/28/25 06:15 RDW Coeff of Scott 16.3 % (11.5-14.5) H 01/28/25 06:15 Plt Count 171 K/uL (130-400) 01/28/25 06:15 MPV 11.1 fL (9.4-12.4) 01/28/25 06:15 Immature Gran % (Auto) 0.5 % 01/28/25 06:15 Neut % (Auto) 38.3 % 01/28/25 06:15 Lymph % (Auto) 47.6 % 01/28/25 06:15 Coke % (Auto) 6.8 % 01/28/25 06:15 Eos % (Auto) 5.6 % 01/28/25 06:15 Baso % (Auto) 1.2 % 01/28/25 06:15 Neut # (Auto) 1.58 K/uL (1.40-6.50) 01/28/25 06:15 Lymph # (Auto) 1.96 K/uL (1.20-3.40) 01/28/25 06:15 Coke # (Auto) 0.28 K/uL (0.11-0.59) 01/28/25 06:15 Eos # (Auto) 0.23 K/uL (0.00-0.50) 01/28/25 06:15 Baso # (Auto) 0.05 K/uL (0.00-0.20) 01/28/25 06:15 Immature Gran # (Auto) 0.02 K/uL (0.01-0.20) 01/28/25 06:15 Sodium 141 mmol/L (136-145) 01/28/25 06:15 Potassium 3.4 mmol/L (3.5-5.1) L 01/28/25 06:15 Chloride 113 mmol/L (98-107) H 01/28/25 06:15 Carbon Dioxide 22 mmol/L (21-32) 01/28/25 06:15 Anion Gap 6 (3-11) 01/28/25 06:15 BUN 4 mg/dl (6-23) L 01/28/25 06:15 Creatinine 0.74 mg/dl (0.6-1.4) 01/28/25 06:15 Est Cr Clr Drug Dosing 98.1 ml/min 01/28/25 06:15 eGFR 100.55 01/28/25 06:15 BUN/Creatinine Ratio 5.4 (10-20) L 01/28/25 06:15 Glucose 109 mg/dl (70-99(Fasting)) H 01/28/25 06:15 POC Glucose 114 mg/dl (70-99) H 01/28/25 11:53 Estimat Average Glucose 126 mg/dl 01/26/25 05:53 Hemoglobin A1c 6.0 % (4.5-5.6) H 01/26/25 05:53 Calcium 7.9 mg/dl (8.6-10.3) L 01/28/25 06:15 Phosphorus 2.8 mg/dl (2.5-4.9) 01/28/25 06:15 Magnesium 1.7 mg/dl (1.7-2.4) 01/28/25 06:15 Total Bilirubin 0.5 mg/dl (0.2-1.0) 01/28/25 06:15 AST 22 U/L (13-39) 01/28/25 06:15 ALT 13 U/L (7-52) 01/28/25 06:15 Alkaline Phosphatase 49 U/L (34-104) 01/28/25 06:15 Troponin I High Sens 9.4 pg/ml (0-20) 01/25/25 09:26 Total Protein 5.1 gm/dl (6.0-8.3) L 01/28/25 06:15 Albumin 2.8 gm/dl (3.4-5.0) L 01/28/25 06:15 Globulin 2.3 gm/dl (2.5-4.0) L 01/28/25 06:15 Albumin/Globulin Ratio 1.2 (0.9-2) 01/28/25 06:15 Lipase 49 U/L (11-82) 01/25/25 09:26 TSH 1.093 uIu/ml (0.300-4.500) 01/26/25 05:53 Urine Color Dark Yellow 01/25/25 13:56 Urine Appearance Clear (Clear) 01/25/25 13:56 Urine pH 5.5 (4.5-7.5) 01/25/25 13:56 Ur Specific [place] > 1.045 (1.000-1.030) H 01/25/25 13:56 Urine Protein 1+ (Negative) H 01/25/25 13:56 Urine Glucose (UA) Negative (Negative) 01/25/25 13:56 Urine Ketones Trace (Negative) H 01/25/25 13:56 Urine Blood Negative (Negative) 01/25/25 13:56 Urine Nitrite Negative (Negative) 01/25/25 13:56 Urine Bilirubin Negative (Negative) 01/25/25 13:56 Urine Urobilinogen Negative (Negative) 01/25/25 13:56 Ur Leukocyte Esterase Negative (Negative) 01/25/25 13:56 Urine WBC (Auto) 11-20 /hpf (0-5) H 01/25/25 13:56 Urine RBC (Auto) 0-2 /hpf (0-2) 01/25/25 13:56 U Hyaline Cast (Auto) 3-5 /lpf (0-2) H 01/25/25 13:56 U Epithel Cells (Auto) 0-2 /hpf (0-2) 01/25/25 13:56 Urine Bacteria (Auto) None Seen (None Seen) 01/25/25 13:56 Urine Comment 01/25/25 13:56 Salicylates < 3.0 mg/dl (3.0-30) L 01/25/25 10:00 Urine Opiates Screen Neg (Neg) 01/25/25 13:56 Ur Methadone, Qual Neg (Neg) 01/25/25 13:56 Urine Fentanyl Screen Neg (Neg) 01/25/25 13:56 Acetaminophen < 3 ug/ml (10-30) L 01/25/25 10:00 Urine Barbiturates Neg (Neg) 01/25/25 13:56 Ur Phencyclidine (PCP) Neg (Neg) 01/25/25 13:56 U Amphetamin/Meth Scrn Neg (Neg) 01/25/25 13:56 MDMA (Ecstasy) Screen Neg (Neg) 01/25/25 13:56 U Benzodiazepines Scrn Neg (Neg) 01/25/25 13:56 Ur Cocaine Metabolite Neg (Neg) 01/25/25 13:56 U Marijuana (THC) Screen Neg (Neg) 01/25/25 13:56 Impressions Abdomen/Pelvis CT 01/25/25 09:26 CT SCAN OF THE ABDOMEN AND PELVIS WITH IV CONTRAST CLINICAL HISTORY: Abdominal pain. Previous fall. COMPARISON STUDY: None. TECHNIQUE: Following the IV administration of Optiray 320, CT scan of the abdomen and pelvis is performed from the lung bases to the proximal femora. Images are reviewed in the axial, sagittal, and coronal planes. IV contrast was administered without complication. A dose lowering technique was utilized adhering to the principles of ALARA. FINDINGS: Visualized portions of the lung bases are unremarkable. There is no pneumatosis, free air or portal venous gas. Liver, spleen, adrenal glands and pancreas are unremarkable with the exception of a few calcifications within the pancreas. There is no biliary or pancreatic ductal dilatation. No peripancreatic or pericholecystic infiltration is present. A 2.3 cm left upper pole renal lesion measures just above water attenuation. This probably represents a cyst. Subcentimeter right renal hypodense lesion is too small to characterize. There is no hydronephrosis. Numerous small radiodensities within the bilateral renal collecting system could represent nonobstructing calculi or excreted contrast. There are no ureteral calculi. Mild bladder wall thickening is noted. There is no evidence for a bowel obstruction. The appendix is normal. Fat-containing right inguinal hernia is incidentally noted. There is no lymphadenopathy. There are no fluid collections. Lumbar spine CT will be reported separately. Major vasculature is patent. IMPRESSION: 1. Mild bladder wall thickening which be correlated with urinalysis to exclude cystitis. 2. No bowel obstruction. No bowel wall thickening. Normal appendix. 3. Numerous small radiodensities within the bilateral renal collecting systems which could represent nonobstructing calculi or excreted contrast. No ureteral calculi. No hydronephrosis. ACT 112: Negative or not required by law. Electronically signed by: Nigel Fuchs M.D. 01/25/2025 10:51 AM Chest X-Ray 01/25/25 09:26 XR chest 1V portable CLINICAL HISTORY: Pain. COMPARISON STUDY: Chest CT December 14, 2012. FINDINGS: The patient is mildly rotated. A linear density along left heart border favors atelectasis. There is no consolidation to suggest pneumonia. Pulmonary vascularity is normal. Cardiomediastinal silhouette is unremarkable. IMPRESSION: No acute cardiopulmonary findings. ACT 112: Negative or not required by law. Electronically signed by: Nigel Fuchs M.D. 01/25/2025 9:[address] 01/25/25 09:[address] WITH CONTRAST CLINICAL HISTORY: Back pain, previous fall. COMPARISON STUDY: No previous studies for comparison. TECHNIQUE: Axial images of the lumbar spine were obtained following intravenous injection of 94 cc of Optiray 320 IV. Sagittal and coronal reformats were viewed. A dose lowering technique was utilized adhering to the principles of ALA RA. FINDINGS: Alignment of the lumbar spine is anatomic. Slight anterior wedging of the L1 and L2 vertebral bodies is chronic. There are no fractures within the lumbar spine. There are no suspicious osseous lesions by CT. Several Schmorl's nodes are noted. There is moderate facet arthrosis and anterior osteophytosis of the lumbar spine. There is mild multilevel disc space narrowing. Central canal and neural foramen are suboptimally assessed given CT technique. However, there is no evidence for significant central canal stenosis. There is mild to moderate multilevel neural foraminal stenosis. Paravertebral soft tissues are unremarkable. IMPRESSION: 1. No lumbar spine fracture or subluxation. 2. Moderate multilevel facet arthrosis and mild degenerative disc disease within the lumbar spine. No significant central canal stenosis by CT. Mild to moderate multilevel neural foraminal stenosis. ACT 112: Negative or not required by law. Electronically signed by: Nigel Fuchs M.D. 01/25/2025 10:55 AM Pending Results Patient Have Any Pending Studies at Discharge: No Discharge Instructions Given to Patient (Per Discharging Provider) PLEASE REFER TO YOUR NEW MEDICATION LIST AND FOLLOW INSTRUCTIONS CAREFULLY. YOUR NEW MEDICATIONS INCLUDE: Cefdinir-antibiotic for urinary tract infection Probiotics Potassium supplement-for low levels of potassium Sertraline-for depression Hydroxyzine-as needed for anxiety INCREASE YOUR DAILY WATER INTAKE 6-8 GLASSES PER DAY. PLEASE CALL YOUR PRIMARY CARE PHYSICIAN OR RETURN TO THE ER IF WITH WORSENING OF SYMPTOMS, INCLUDING WEAKNESS, DIZZINESS, chest pain, palpitations, shortness of breath, Abdominal pain, problems with urination, fever /chills, worsening depression or anxiety, etc. FOLLOW UP WITH PRIMARY CARE PHYSICIAN OUTLINED ABOVE. Total Time Total Time Spent Total Time Spent (In Minutes): 60 minutes
[2025-01-28 14:06] VITALS: PULSE 104
== END 2025-01-28 13:53 | disposition home or self-care (01) | DRG 690 ==
LOC: ED 08:56 → EDINP 13:28 → SUATTDRO 13:28 → 2W 17:43